=== PATIENT | female | born 1985 | race African-American/Black ===

== ENCOUNTER 2017-04-25 20:41 | Emergency (ER) | payer OTHER ==
[2017-04-25] MEDS ORDERED: predniSONE TAB* 20 MG PO ONE (22:28)
[2017-04-25] MEDS ORDERED: Albuterol 2.5 MG/3 ML NEB.SOL* (0.083%) INH ONE (22:29)
--- NOTE | 2017-04-25 22:29 | UC ---
Respiratory Complaint HPI - HPI Summary HPI Summary: 31 y/o female presents to the urgent care c/o productive cough, wheezing, chills , for the past week. Pt reports Hx of asthma, but has been controlled for many years. Symptoms started w/ a common cold, how ever cough is now productive w/ yellowish phlegm and last night she started w/ mild wheezing at times. She doesn't have an albuterol inhaler. Pt feels fatigue, and chills. She denies fever, SOB, chest pain, abdominal pain, MARINELLI, N/V/D. - History of Current Complaint Chief Complaint: UCRespiratory Stated Complaint: COUGH Time Seen by Provider: 04/25/17 22:08 Hx Obtained From: Patient Hx Last Menstrual Period: implant ?: No Onset/Duration: Gradual Onset, Lasting Weeks - 1 week, Still Present, Worse Since - last night Timing: Intermittent Episodes Severity Initially: Mild Severity Currently: Moderate Pain Intensity: 0 Pain Scale Used: 0-10 Numeric Character: Cough: Productive, Sputum Description: - yellowish Aggravating Factors: Recumbent Position Alleviating Factors: OTC Meds Associated Signs And Symptoms: Positive: Chills, Wheezing, URI, Nasal Congestion. Negative: Fever - Risk Factors Pulmonary Embolism Risk Factors: Negative Cardiac Risk Factors: Negative Pseudomonas Risk Factors: Negative Tuberculosis Risk Factors: Negative - Allergies/Home Medications Allergies/Adverse Reactions: Allergies Allergy/AdvReac Type Severity Reaction Status Date / Time Penicillins Allergy Hives Verified 04/25/17 21:03 Home Medications: Home Medications Iron [Iron] 90 mg PO DAILY 04/25/17 [History Confirmed 04/25/17] Multivitamin [Multivitamins] 1 cap PO DAILY 04/25/17 [History Confirmed 04/25/17 ] PMH/Surg Hx/FS Hx/Imm Hx Previously Healthy: Yes Respiratory History: Asthma - Surgical History Surgical History: Yes Surgery Procedure, Year, and Place: TONSILLECTOMY 2009 - Family History Known Family History: Positive: Diabetes - Social History Occupation: Employed Full-time Lives: With Family Alcohol Use: None Substance Use Type: None Smoking Status (MU): Never Smoked Tobacco - Immunization History Most Recent Influenza Vaccination: declines Most Recent Tetanus Shot: 12/11/14 Most Recent Pneumonia Vaccination: none Review of Systems Constitutional: Chills, Fatigue Skin: Negative Eyes: Negative ENT: Nasal Discharge, Sinus Congestion Respiratory: Cough, Other - wheezing Cardiovascular: Negative Gastrointestinal: Negative Genitourinary: Negative Motor: Negative Neurovascular: Negative Musculoskeletal: Negative Neurological: Negative Psychological: Negative Is Patient Immunocompromised?: No All Other Systems Reviewed And Are Negative: Yes Physical Exam Triage Information Reviewed: Yes Vital Signs: Initial Vital Signs Temp 98.7 F 04/25/17 20:58 Pulse 91 04/25/17 20:58 Resp 16 04/25/17 20:58 BP 119/49 04/25/17 20:58 Pulse Ox 98 04/25/17 20:58 - Additional Comments Vital Signs Reviewed: Yes General: well developed, well nourished female sitting in the examining table w/ o any apparent respiratory distress Eyes: Positive: Conjunctiva Clear - PERRLA, EOMI, fundi grossly normal ENT: Positive: Normal ENT inspection, Hearing grossly normal, Pharynx normal, Nasal congestion - edematous and erythematous nasal mucosa, Nasal drainage - yellowish drainage, TMs normal. Negative: Tonsillar swelling, Tonsillar exudate Neck: Positive: Supple, Nontender, No Lymphadenopathy Respiratory: no orthopnea or dyspnea. Able to speak in full sentences, no retractions or accessory muscle use, no tripod position, stridor, or head bobbing. breath sounds present, mild scattered wheeaing in the posterior lungs w. mild rhonchi. No crackles or rales. Cardiovascular: Positive: RRR, No Murmur, Pulses Normal, Brisk Capillary Refill Abdomen Description: Positive: Nontender, No Organomegaly, Soft. Negative: CVA Tenderness (R), CVA Tenderness (L) Bowel Sounds: Positive: Present Musculoskeletal Exam: Normal Musculoskeletal: Positive: Strength Intact, ROM Intact, No Edema Neurological Exam: Normal Psychological Exam: Normal Skin Exam: Normal UC Diagnostic Evaluation - Laboratory O2 Sat by Pulse Oximetry: 98 Respiratory Course/Dx - Course Course Of Treatment: 31 y/o female presents to the urgent care c/o productive cough, wheezing, chills, for the past week. Pt reports Hx of asthma, but has been controlled for many years. Symptoms started w/ a common cold, how ever cough is now productive w/ yellowish phlegm and last night she started w/ mild wheezing at times. She doesn't have an albuterol inhaler. Pt feels fatigue, and chills. She denies fever, SOB, chest pain, abdominal pain, MARINELLI, N/V/D. Hx obtained. Asthma exacerbation: due to Acute Bronchitis. Influenza A&B ordered: negative. Albuterol Treatment and Perdnisone PO given to patient. Patient tolerated well treatment and lungs improved, mild wheezing only in posterior RT lung, O2 sat 100%. Patient prescribed Z-boyd, Prednisone, Albuterol inhaler as directed below. The patient was recommended to increase fluid intake. Take medications as recommended Patient recommended to return to the clinic or go to the nearest ER if symptoms do not improve or worsen. Patient understood and agreed w/ plan of care - Differential Dx/Diagnosis Differential Diagnosis/HQI/PQRI: Asthma, Bronchitis, Influenza, Laryngitis, Sinusitis Provider Diagnoses: 1- Acute bronchitis. 2-Asthma exacerbation Discharge - Discharge Plan Condition: Stable Disposition: HOME Prescriptions: Albuterol HFA INHALER* [Ventolin HFA Inhaler*] 1 - 2 puff INH Q4H PRN #1 mdi PRN Reason: Wheezing Azithromycin TAB* [Zithromax TAB (Z-BOYD) 250 mg #6 tabs] 250 mg PO DAILY #4 tab predniSONE TAB* [Deltasone TAB*] 20 mg PO DAILY #8 tab Patient Education Materials: Asthma (ED), Acute Bronchitis (ED) Forms: *Work Release Referrals: Tsering Draper MD [Primary Care Provider] - 3 Days Additional Instructions: 1-Please take full course of antibiotic to avoid resistance. 2-Take Prednisone PO as directed continue using the albuterol inhaler 3- If symptoms do not improve or worsen or your develop SOB with fever and severe wheezing please go immediately to the ER further evaluation and treatment. 4- F/u with your PCP in 2-3 days for further management on your Asthma
[2017-04-25] MEDS ORDERED: Azithromycin TAB* 250 MG PO ONE (23:00)
[2017-04-25 23:08] VITALS: BP 116/50
== END 2017-04-25 23:16 | disposition home or self-care (01) ==
LOC: UCEAST 20:41
DX: J20.9 Acute bronchitis, unspecified (principal); J45.901 Unspecified asthma with (acute) exacerbation
CPT/HCPCS: 87502; 99212; G0463; J7512

== ENCOUNTER 2017-09-18 10:28 | Emergency (ER) | payer OTHER ==
[2017-09-18] MEDS ORDERED: Ketorolac INJ* 60 MG/2 ML VIAL IM ONE (11:37)
[2017-09-18] MEDS ORDERED: Clindamycin CAP* 150 MG PO ONE (11:37)
--- NOTE | 2017-09-18 11:47 | ED ---
Throat Pain/Nasal Congestion - HPI Summary HPI Summary: This is horacio Gutierrez documenting for attending Luke Reese MD. This patient is a 31 year old F presenting to ED with a chief complaint of dental pain since 2 days ago. The CC is described as swelling on her R wisdom tooth. The patient rates the pain 10/10 in severity. Symptoms aggravated by opening her mouth. Symptoms alleviated by nothing. Patient reports R jaw pain. The patient has not yet seen a dentist. - History of Current Complaint Chief Complaint: EDDentalPain Time Seen by Provider: 09/18/17 11:24 Hx Obtained From: Patient Onset/Duration: Sudden Onset, Lasting Days - 2 days ago Severity: Severe - 10/10 - Allergies/Home Medications Allergies/Adverse Reactions: Allergies Allergy/AdvReac Type Severity Reaction Status Date / Time Penicillins Allergy Hives Verified 09/18/17 11:34 PMH/Surg Hx/FS Hx/Imm Hx Endocrine/Hematology History: Denies: Hx Diabetes, Hx Thyroid Disease Cardiovascular History: Denies: Hx Hypertension Respiratory History: Denies: Hx Asthma, Hx Chronic Obstructive Pulmonary Disease (COPD) GI History: Denies: Hx Ulcer - Surgical History Surgery Procedure, Year, and Place: TONSILLECTOMY 2009 Infectious Disease History: No Infectious Disease History: Denies: Hx Clostridium Difficile, Hx Hepatitis, Hx Human Immunodeficiency Virus (HIV), Hx of Known/Suspected MRSA, Hx Shingles, Hx Tuberculosis, Traveled Outside the in Last 30 Days - Family History Known Family History: Positive: Diabetes - Social History Alcohol Use: None Substance Use Type: Reports: None Smoking Status (MU): Never Smoked Tobacco Review of Systems Negative: Fever Positive: Dental Pain - R wisdom tooth, Other - R jaw pain All Other Systems Reviewed And Are Negative: Yes Physical Exam - Summary Physical Exam Summary: VITAL SIGNS: Reviewed. GENERAL: Patient is a well-developed and nourished FEMALE who is lying comfortable in the stretcher. Patient is not in any acute respiratory distress. HEAD AND FACE: No signs of trauma. No ecchymosis, hematomas or skull depressions. No sinus tenderness. Swelling of R side of the face. EYES: PERRLA, EOMI x 2, No injected conjunctiva, no nystagmus. EARS: Hearing grossly intact. Ear canals and tympanic membranes are within normal limits. MOUTH: wisdom tooth infection, no tongue or lip swelling, Air ways are patent. NECK: Supple, trachea is midline, no adenopathy, no JVD, no carotid bruit, no c- spine tenderness, neck with full ROM. CHEST: Symmetric, no tenderness at palpation LUNGS: Clear to auscultation bilaterally. No wheezing or crackles. CVS: Regular rate and rhythm, S1 and S2 present, no murmurs or gallops appreciated. ABDOMEN: Soft, non-tender. No signs of distention. No rebound no guarding, and no masses palpated. Bowel sounds are normal. EXTREMITIES: FROM in all major joints, no edema, no cyanosis or clubbing. NEURO: Alert and oriented x 3. No acute neurological deficits. Speech is normal and follows commands. SKIN: Dry and warm Triage Information Reviewed: Yes Vital Signs On Initial Exam: Initial Vitals Temp Pulse Resp BP Pulse Ox 98.6 F 82 16 137/75 100 09/18/17 10:29 09/18/17 10:29 09/18/17 10:29 09/18/17 10:29 09/18/17 10:29 Vital Signs Reviewed: Yes Diagnostics - Vital Signs Vital Signs Temp Pulse Resp BP Pulse Ox 09/18/17 10:29 98.6 F 82 16 137/75 100 - Laboratory Lab Statement: Any lab studies that have been ordered have been reviewed, and results considered in the medical decision making process. EENT Course/Dx - Course Course Of Treatment: Patient is a 31-year-old female who presents to the emergency room with dental pain. She reports that she has a dental infection for the last 2 days and she has some swelling of the right side of the face. Therefore the patient will be given a prescription for clindamycin since she is allergic to penicillins, given ibuprofen and [place] for the pain. In the ED she was also given 1 dose of Toradol and clindamycin. Since the patient does have any trismus, tongue swelling or lip swelling the patient will be discharged home with follow-up with PCP and dentist. Patient is hemodynamically stable alert and oriented 3. - Differential Diagnoses Differential Diagnoses: Other - dental pain, toothache - Diagnoses Provider Diagnoses: Toothache Discharge - Sign-Out/Discharge Documenting (check all that apply): Patient Departure - Discharge Plan Condition: Stable Disposition: HOME Prescriptions: Clindamycin Cap(NF) [Clindamycin Cap 300 mg Cap(NF)] 300 mg PO TID #30 cap HYDROcodone/ACETAMIN 5-325 MG* [[place] 5-325 TAB*] 1 tab PO Q6H PRN #10 tab MDD 4 PRN Reason: Pain Ibuprofen TAB* [Motrin TAB* 600 MG] 600 mg PO Q8H PRN #30 tab PRN Reason: Pain Patient Education Materials: Toothache (ED) Referrals: Tsering Draper MD [Primary Care Provider] - 3 Days Additional Instructions: RETURN TO ED FOR ANY WORSENING OR NEW SYMPTOMS.
[2017-09-18 12:10] VITALS: BP 118/62
== END 2017-09-18 11:59 | disposition home or self-care (01) ==
LOC: ED 10:28
DX: K08.89 Other specified disorders of teeth and supporting structures (principal); Z88.0 Allergy status to penicillin
CPT/HCPCS: 96372; 99282; A9270-GY; J1885

== ENCOUNTER 2017-10-23 08:06 | Emergency (ER) | payer OTHER ==
--- NOTE | 2017-10-23 08:13 | UC ---
Ear Complaint HPI - HPI Summary HPI Summary: 32 y/o female presents to the urgent care c/o B/L ear pain for the past 2 days. R>L w/ decrease hearing n the Rt ear. Pain is 8/10 associates w/ nasal congestion and yellowish drainage. She has taking Ibuprofen PO to alleviate symptoms. Pt denies fever, dizziness, SOB, chest pain, cough, abdominal pain, N /v/D. - History of Current Complaint Stated Complaint: EAR PAIN Time Seen by Provider: 10/23/17 08:12 Hx Obtained From: Patient Hx Last Menstrual Period: implant ?: No Onset/Duration: Gradual Onset, Lasting Days - 2 days, Still Present, Worse Since - today Severity Initially: Mild Severity Currently: Moderate Pain Intensity: 8 Pain Scale Used: 0-10 Numeric Aggravating Factors: Nothing Alleviating Factors: OTC Meds Associated Signs/Symptoms: Positive: Hearing Loss - Allergies/Home Medications Allergies/Adverse Reactions: Allergies Allergy/AdvReac Type Severity Reaction Status Date / Time Penicillins Allergy Hives Verified 10/23/17 08:16 Home Medications: Home Medications diphenhydrAMINE HCl [Benadryl Allergy] 25 mg PO DAILY PRN 10/23/17 [History Confirmed 10/23/17] PMH/Surg Hx/FS Hx/Imm Hx Previously Healthy: Yes Respiratory History: Asthma - Surgical History Surgical History: Yes Surgery Procedure, Year, and Place: TONSILLECTOMY 2008 - Family History Known Family History: Positive: Cardiac Disease, Diabetes - Social History Occupation: Employed Full-time Lives: With Family Alcohol Use: None Substance Use Type: None Smoking Status (MU): Never Smoked Tobacco - Immunization History Most Recent Influenza Vaccination: declines Most Recent Tetanus Shot: 12/11/14 Most Recent Pneumonia Vaccination: none Review of Systems Constitutional: Negative Skin: Negative Eyes: Negative ENT: Ear Ache - B/L ear pain w/ decrease hearing, Nasal Discharge - yellowish, Sinus Congestion Respiratory: Negative Cardiovascular: Negative Gastrointestinal: Negative Genitourinary: Negative Motor: Negative Neurovascular: Negative Musculoskeletal: Negative Neurological: Negative Psychological: Negative Is Patient Immunocompromised?: No All Other Systems Reviewed And Are Negative: Yes Physical Exam - Summary Physical Exam Summary: Vital signs: reviewed General: well developed, well nourished female sitting in the examining table w/ o any apparent distress Skin: [place], warm and dry, no evidence of atopic dermatitis, psoriasis, seborrhea. HEENT: -Head: atraumatic, non tender; no scalp dermatitis. -Eyes: sclera and conjunctiva clear, PERRLA, EOMI -Ears: no pre- or postauricular lymphadenopathy or erythema; RT external ear canal clear, Rt TM moderately injected w/ erythema and yellowish drainage., LF external ear canal clear and LF TM WNL. TMs normal w/out bulging or retraction. Good light reflex. No fluid level, vesicles, or bullae. No perforation. -Nose/Face: erythematous and edematous nasal mucosa with clear rhinorrhea, no frontal or maxillary sinus tender to palpation. -Mouth/Throat: Mucous membrane moist, posterior pharynx clear, no erythema or exudates. Neck: supple, FROM, nontender, no lymphadenopathy, no meningismus. Chest: Clear to auscultation, normal breath sounds Abd: soft, Bowel sounds active, Nontender. Back: no spinal or CVAT Neuro: A&O x4, GCS 15, no focal neuro deficits, normal behavior for age. Triage Information Reviewed: Yes Ear Complaint Course/Dx - Course Course Of Treatment: 32 y/o female presents to the urgent care c/o B/L ear pain for the past 2 days. R>L w/ decrease hearing n the Rt ear. Pain is 8/10 associates w/ nasal congestion and yellowish drainage. She has taking Ibuprofen PO to alleviate symptoms. Pt denies fever, dizziness, SOB, chest pain, cough, abdominal pain, N/v/D.Hx obtained. Pt w/ acute Otitis Media on examination. Pt PCN allergic. Pt Rx Z-boyd PO and Ibuprofen for otaliga. PT advised if symptoms do not improve or worsen to return to the urgent care or f/u with PCP for further management. PT understood and agreed with D/C instructions. - Differential Dx/Diagnosis Differential Diagnosis/HQI/PQRI: Cerumen Impaction, Otitis Externa, Otitis Media , Perforated TM, URI Provider Diagnoses: 1- RT acute otitis Media. 2- Otalgia Discharge - Sign-Out/Discharge Documenting (check all that apply): Patient Departure - D/c home All imaging exams completed and their final reports reviewed: No Studies - Discharge Plan Condition: Stable Disposition: HOME Prescriptions: Azithromyxin BOYD (NF) [Z-Boyd (Zithromax) 250 mg tabs #6] 2 tab PO .TODAY, THEN 1 DAILY #6 tab Ibuprofen TAB* [Motrin TAB* 600 MG] 600 mg PO Q6H PRN #30 tab PRN Reason: Pain Patient Education Materials: Ear Infection (ED) Referrals: Tsering Draper MD [Primary Care Provider] - 3 Days Additional Instructions: 1- Please take the full course of the antibiotic to avoid resistance. 2-Please take ibuprofen PO q6-8hrs prn as instructed after meals to alleviate pain and swelling. Increase fluid intake, eat well, rest and avoid strenuous exercise 3-If symptoms do not improve or worsen please return to the urgent care or f/u with your PCP for further evaluation and treatment. - Billing Disposition and Condition Condition: STABLE Disposition: Home
[2017-10-23 08:16] VITALS: BP 107/65
== END 2017-10-23 08:33 | disposition home or self-care (01) ==
LOC: UCEAST 08:06
DX: H66.91 Otitis media, unspecified, right ear (principal); Z88.0 Allergy status to penicillin; H92.03 Otalgia, bilateral
CPT/HCPCS: 99212; G0463

== ENCOUNTER 2017-11-26 13:02 | Emergency (ER) | payer OTHER ==
[2017-11-26 13:13] VITALS: BP 126/83
--- NOTE | 2017-11-26 13:28 | UC ---
Breast Complaint - HPI Summary HPI Summary: right breast and arm pain x 3 months. [facility] and was told to see her PCP for a possible pinched nerve. She has an appointment scheduled with her PCP for this , but the pain is now in her right ribs and she wants to be seen since the pain is very intense. She has norplanon on her left arm which coincided with the onset of pain. Denies SOB, dizziness, MARINELLI, palpitations. Pain is not related to physical activity. She states pain is like labor pains. Denies breast enlargement, nipple discharge, manipulation - History of Current Complaint Hx Obtained From: Patient Breast Chief Complaint: Pain Onset/Duration: Started Weeks Ago Timing: Constant Breast Pain Radiates To: Right, Axilla, Back, Neck, Other: - ribcage, arm and hand Breast Pain Aggravating Factors: Nothing Breast Pain Alleviating Factors: Nothing Breast Associated Signs/Symptoms: Negative - Allergy/Home Medications Allergies/Adverse Reactions: Allergies Allergy/AdvReac Type Severity Reaction Status Date / Time Penicillins Allergy Hives Verified 11/26/17 13:06 Home Medications: Home Medications Aspirin TAB* [Aspirin 325 MG TAB*] 325 mg PO DAILY PRN 11/26/17 [History Confirmed 11/26/17] Etonogestrel [Nexplanon] 68 mg 11/26/17 [History] PMH/Surg Hx/FS Hx/Imm Hx Previously Healthy: Yes Respiratory History: Asthma - Surgical History Surgical History: Yes Surgery Procedure, Year, and Place: TONSILLECTOMY 2008 - Family History Known Family History: Positive: Cardiac Disease, Diabetes - Social History Alcohol Use: Occasionally Substance Use Type: None Smoking Status (MU): Light Every Day Tobacco Smoker Type: Cigarettes - Immunization History Most Recent Influenza Vaccination: declines Most Recent Tetanus Shot: 12/11/14 Most Recent Pneumonia Vaccination: none Review of Systems Constitutional: Negative Musculoskeletal: Arthralgia, Myalgia All Other Systems Reviewed And Are Negative: Yes Physical Exam - Summary Physical Exam Summary: cervical spine is midline, non tender, FROM, spurling negative. Right shoulder Muñoz negative, no impingement, supraspinatus negative, FROM and strength intact Arm: non tender on elbow palpation Hand: phalen/tinel negative, no distal swelling Ribs: no deformity non tender on palpation Triage Information Reviewed: Yes Appearance: Well-Appearing, Pain Distress, Obese Vital Signs: Initial Vital Signs Temp 98.6 F 11/26/17 13:08 Pulse 100 11/26/17 13:08 Resp 20 11/26/17 13:08 BP 126/83 11/26/17 13:08 Pulse Ox 99 11/26/17 13:08 Vital Signs Reviewed: Yes Eyes: Positive: Conjunctiva Clear ENT: Positive: Hearing grossly normal, Pharynx normal Neck: Positive: Supple, Nontender, No Lymphadenopathy Respiratory: Positive: Chest non-tender, Lungs clear, Normal breath sounds, No respiratory distress Cardiovascular: Positive: RRR, No Murmur, Pulses Normal Abdomen Description: Positive: Nontender, No Organomegaly, Soft Bowel Sounds: Positive: Present Musculoskeletal: Positive: Strength Intact, ROM Intact, No Edema Neurological: Positive: Alert, Muscle Tone Normal Breast Pain Course/Dx - Course Course Of Treatment: chest xray was normal, no presence of cervical rib, patient with right UE and right shoulder/neck ribcage pain that coincided with nexplanon insertion for the past few months, patient wants it extracted [facility]. Given toradol to control pain, states it decreased pain significantly and will start gabapentin and ibuprofen as prescribed. F/u with primary care for further testing as to the etiology of pain, may need EMG/nerve conduction studies. - Diagnoses Provider Diagnoses: Paresthesia and pain of extremity Is Visit Related: No Discharge - Sign-Out/Discharge Documenting (check all that apply): Patient Departure All imaging exams completed and their final reports reviewed: Yes - Discharge Plan Condition: Stable Disposition: HOME Prescriptions: Gabapentin CAP(*) [Neurontin 300 CAP(*)] 300 mg PO BEDTIME #14 cap Ibuprofen TAB* [Motrin TAB* 600 MG] 600 mg PO Q6H PRN 5 Days #20 tab PRN Reason: Pain Referrals: Tsering Draper MD [Primary Care Provider] - - Billing Disposition and Condition Condition: STABLE Disposition: Home
[2017-11-26] MEDS ORDERED: Ketorolac INJ* 30 MG/ML 1 ML VIAL IM ONE (13:44)
--- NOTE | 2017-11-26 14:24 | RAD ---
HISTORY: paresthesia right UE and trunk r/o cervical rib COMPARISONS: November 05, 2013 VIEWS: 4: Frontal dual-energy and lateral views of the chest. FINDINGS: CARDIOMEDIASTINAL SILHOUETTE: The cardiomediastinal silhouette is normal. FERNANDO: The fernando are normal. PLEURA: The costophrenic angles are sharp. No pleural abnormalities are noted. LUNG PARENCHYMA: The lungs are clear. ABDOMEN: The upper abdomen is clear. There is no subphrenic gas. BONES AND SOFT TISSUES: No bone or soft tissue abnormalities are noted. OTHER: None. IMPRESSION: NO ACTIVE CARDIOPULMONARY DISEASE.
== END 2017-11-26 14:38 | disposition home or self-care (01) ==
LOC: UCEAST 13:02
DX: R20.2 Paresthesia of skin (principal); R07.81 Pleurodynia; N64.4 Mastodynia; M79.621 Pain in right upper arm; M54.2 Cervicalgia; Z88.0 Allergy status to penicillin; F17.210 Nicotine dependence, cigarettes, uncomplicated
CPT/HCPCS: 71046; 96372; 99212; G0463; J1885

== ENCOUNTER 2018-01-31 12:32 | Emergency (ER) | payer OTHER ==
[2018-01-31] MEDS ORDERED: Clindamycin 600 MG IVPREMIX(* 600 MG/50 ML SDV IV ONE (12:46)
--- NOTE | 2018-01-31 12:47 | ED ---
Throat Pain/Nasal Congestion - HPI Summary HPI Summary: 32 year old female presents with a dental abscess. Needs wisdom teeth extraction per Dentist. Patient states the pain and swelling began Monday and has been progressively getting worse. She states she now is unable to fully open her mouth. She called her dentist who recommended she be seen in the ED. States the pain is localized to the right jaw with no radiation. Rates the pain as a 10/10. She took 600mg of ibuprofen at 1000 with little relief. Patient has had a dental abscess in the past. Patient denies CP, SOB, neck pain, difficulty swallowing, ear pain, headache, and neck stiffness. Endorses difficulty chewing , jaw pain, and swelling. Patient is otherwise healthy and takes no medications on a daily basis. - History of Current Complaint Chief Complaint: EDDentalPain Time Seen by Provider: 01/31/18 12:40 Hx Obtained From: Patient Onset/Duration: Sudden Onset, Lasting Days Severity: Severe Associated Signs And Symptoms: Positive: Negative Related History: Other (Noted In Comments) - recent wisdom teeth extraction, hx of dental abscess - Epiglottits Risk Factors Epiglottis Risk Factors: Negative - Allergies/Home Medications Allergies/Adverse Reactions: Allergies Allergy/AdvReac Type Severity Reaction Status Date / Time Penicillins Allergy Hives Verified 01/31/18 12:39 PMH/Surg Hx/FS Hx/Imm Hx Previously Healthy: Yes Endocrine/Hematology History: Denies: Hx Diabetes, Hx Thyroid Disease Cardiovascular History: Denies: Hx Hypertension Respiratory History: Reports: Hx Asthma Denies: Hx Chronic Obstructive Pulmonary Disease (COPD) GI History: Denies: Hx Ulcer - Surgical History Surgery Procedure, Year, and Place: TONSILLECTOMY 2009 Infectious Disease History: No Infectious Disease History: Denies: Hx Clostridium Difficile, Hx Hepatitis, Hx Human Immunodeficiency Virus (HIV), Hx of Known/Suspected MRSA, Hx Shingles, Hx Tuberculosis, Traveled Outside the [place] in Last 30 Days - Family History Known Family History: Positive: Cardiac Disease, Diabetes - Social History Alcohol Use: Occasionally Substance Use Type: Reports: None Smoking Status (MU): Light Every Day Tobacco Smoker Type: Cigarettes Review of Systems Negative: Fever, Fatigue Negative: Blurred Vision, Drainage Positive: Dental Pain. Negative: Sore Throat, Ear Ache, Nasal Discharge Negative: Chest Pain Negative: Shortness Of Breath Negative: Vomiting, Nausea Negative: Headache, Weakness Psychological: Normal All Other Systems Reviewed And Are Negative: Yes Physical Exam Triage Information Reviewed: Yes Vital Signs On Initial Exam: Initial Vitals Temp Pulse Resp BP Pulse Ox 98.1 F 82 18 124/81 100 01/31/18 12:36 01/31/18 12:36 01/31/18 12:36 01/31/18 12:36 01/31/18 12:36 Vital Signs Reviewed: Yes Appearance: Positive: Well-Appearing, Well-Nourished, Pain Distress Skin: Positive: Warm Head/Face: Positive: Other - Edema of the right jaw. Tenderness to palpation of the right jaw and cheek. Eyes: Positive: EOMI, JURGEN, Conjunctiva Clear ENT: Positive: Pharynx normal, TMs normal, Dental tenderness Dental: Positive: Percussion Tenderness @ - 1. Negative: Abscess @ Neck: Positive: Supple, Nontender, No Lymphadenopathy Respiratory/Lung Sounds: Positive: Clear to Auscultation, Breath Sounds Present Cardiovascular: Positive: Normal, RRR Abdomen Description: Positive: Nontender, Soft Bowel Sounds: Positive: Present Musculoskeletal: Positive: Normal Neurological: Positive: Normal Psychiatric: Positive: Normal Diagnostics - Vital Signs Vital Signs Temp Pulse Resp BP Pulse Ox 01/31/18 12:36 98.1 F 82 18 124/81 100 - Laboratory Lab Statement: Any lab studies that have been ordered have been reviewed, and results considered in the medical decision making process. Re-Evaluation - Re-Evaluation First Eval Re-Evaluation Time: 13:56 Change: Improved Comment: feeling better after fluids EENT Course/Dx - Course Course Of Treatment: 32 year old female presents with dental pain and possible abscess since Monday. Patient has a history of dental abscess and was referred to ED by dentist. Patient denies radiation, ear pain, difficulty swallowing, CP , and SOB. Physical exam reveals a swollen right jaw and tenderness to the 1st tooth. No abscess noted. Patient was given Toradol for pain and started on IV Clindamycin. Patient prescribed outpatient Clindamycin for infection and [place] to use PRN for pain. Patient instructed to follow up promptly with dentist. patient understand and agrees with plan. - Differential Diagnoses Differential Diagnoses: Dental Abscess, Dental Caries, Fractured Tooth - Diagnoses Provider Diagnoses: Dental infection Discharge - Sign-Out/Discharge Documenting (check all that apply): Patient Departure - Discharge Plan Condition: Good Disposition: HOME Prescriptions: Clindamycin Cap(NF) [Clindamycin Cap 300 mg Cap(NF)] 300 mg PO TID #20 cap HYDROcodone/ACETAMIN 5-325 MG* [[place] 5-325 TAB*] 1 tab PO Q6H PRN #8 tab MDD 4 PRN Reason: Pain Patient Education Materials: Dental Abscess (ED) Referrals: Tsering Draper MD [Medical Doctor] - Additional Instructions: Take clindamycin three times a day for 7 days Take ibuprofen every 6 hours for pain as needed, use norco every 6 hours for break through pain Avoid hard, crunchy food until seen by dentist Return to ED if develop fever, shortness of breath, pain with eye movement or swelling around eye Establish care with dentist as soon as possible - Billing Disposition and Condition Condition: GOOD Disposition: Home Images - Images Dental: 1 - pain
[2018-01-31] MEDS ORDERED: Ketorolac INJ* 30 MG/ML 1 ML VIAL IV PUSH ONE (12:57)
[2018-01-31] MEDS ORDERED: NS 0.9% 1000 ML* 1,000 ML IV ONE (12:57)
[2018-01-31 14:03] VITALS: BP 130/81
== END 2018-01-31 14:02 | disposition home or self-care (01) ==
LOC: ED 12:32
DX: K04.7 Periapical abscess without sinus (principal); F17.210 Nicotine dependence, cigarettes, uncomplicated; J45.909 Unspecified asthma, uncomplicated
CPT/HCPCS: 96361; 96374; 96375; 99282; J1885

== ENCOUNTER 2018-03-03 08:19 | Emergency (ER) | payer OTHER ==
[2018-03-03 08:32] VITALS: BP 116/69
--- NOTE | 2018-03-03 09:12 | UC ---
Complaint Female HPI - HPI Summary HPI Summary: 5 days of dysuria only. Uses nexplanon. denies n/v, vaginal discharge, vaginal rash/open areas. - History Of Current Complaint Chief Complaint: UCGU Stated Complaint: URINARY ISSUE Time Seen by Provider: 03/03/18 08:25 Hx Obtained From: Patient Hx Last Menstrual Period: November; has implant ?: No - nexplanon Timing: Constant Pain Intensity: 0 - Allergies/Home Medications Allergies/Adverse Reactions: Allergies Allergy/AdvReac Type Severity Reaction Status Date / Time Penicillins Allergy Hives Verified 03/03/18 08:29 Home Medications: Home Medications Multivitamin [Multivitamins] 1 cap PO DAILY 03/03/18 [History Confirmed 03/03/18 ] PMH/Surg Hx/FS Hx/Imm Hx Previously Healthy: Yes - Surgical History Surgical History: Yes Surgery Procedure, Year, and Place: TONSILLECTOMY 2008 - Family History Known Family History: Positive: Cardiac Disease, Diabetes - Social History Alcohol Use: None Substance Use Type: None Smoking Status (MU): Former Smoker Type: Cigarettes - Immunization History Most Recent Influenza Vaccination: declines Most Recent Tetanus Shot: 12/11/14 Most Recent Pneumonia Vaccination: none Review of Systems All Other Systems Reviewed And Are Negative: Yes Constitutional: Negative: Fever Genitourinary: Positive: Dysuria. Negative: Hematuria, Frequency, Urgency, Vaginal/Penile Discharge Physical Exam Triage Information Reviewed: Yes Appearance: Well-Appearing Vital Signs: Initial Vital Signs Temp 98.2 F 03/03/18 08:25 Pulse 85 03/03/18 08:25 Resp 14 03/03/18 08:25 BP 116/69 03/03/18 08:25 Pulse Ox 100 03/03/18 08:25 Vital Signs Reviewed: Yes Respiratory Exam: Normal Cardiovascular Exam: Normal Abdomen Description: Positive: Nontender, Soft. Negative: CVA Tenderness (R), CVA Tenderness (L), Distended, Guarding Pelvic Exam: Positive: Other - DECLINED Complaint Female Dx - Course Course Of Treatment: 5 day hx of dysuria only. Neg. urine hcg. UA showed blood only. Will tx empirically for now, send for urine cx. chlam/ced also sent. If not improving she should get worked up. she declined gu exam. otherwise vitals normal and no cvat. - Differential Dx/Diagnosis Differential Diagnosis/HQI/PQRI: Sexually Transmitted Disease, Urinary Tract Infection Provider Diagnosis: Dysuria Discharge - Sign-Out/Discharge Documenting (check all that apply): Patient Departure All imaging exams completed and their final reports reviewed: No Studies - Discharge Plan Condition: Good Disposition: HOME Prescriptions: Nitrofurantoin Macrocrystals* [Macrodantin 100 mg*] 100 mg PO BID 5 Days #10 cap Patient Education Materials: Urinary Tract Infection in Women (ED) Referrals: Charmaine Velasco NP [Primary Care Provider] - Additional Instructions: Your urine did not show an obvious infection but there was microscopic blood. For this reason I will treat it with an antibiotic and am sending it to get cultured. We will call you with the other tests if abnormal. If your symptoms persist after treatment please follow up with your primary care. - Billing Disposition and Condition Condition: GOOD Disposition: Home
== END 2018-03-03 09:25 | disposition home or self-care (01) ==
LOC: UCEAST 08:19
DX: R30.0 Dysuria (principal); Z88.0 Allergy status to penicillin; Z87.891 Personal history of nicotine dependence
CPT/HCPCS: 81003; 84702; 87086; 87491; 87591; 99212; G0463

== ENCOUNTER 2018-04-05 18:36 | Emergency (ER) | payer OTHER ==
[2018-04-05 19:04] VITALS: BP 122/65
[2018-04-05 19:16] LABS: Influenza A Molecular NEGATIVE (Negative); Influenza B Molecular NEGATIVE (Negative)
--- NOTE | 2018-04-05 19:26 | UC ---
FLU HPI - HPI Summary HPI Summary: 32-year-old woman comes in with a chief complaint of several days of bodyaches fevers chills nausea. No vomiting no chest congestion no shortness of breath. Uars-noy-[id number] medications up with the symptoms some. Her son is also sick with the same symptoms. - History of Current Complaint Chief Complaint: UCRespiratory Stated Complaint: FLU LIKE SYMP Time Seen by Provider: 04/05/18 18:51 Hx Last Menstrual Period: implant Pain Intensity: 8 - Allergy/Home Medications Allergies/Adverse Reactions: Allergies Allergy/AdvReac Type Severity Reaction Status Date / Time Penicillins Allergy Hives Verified 03/03/18 08:29 Home Medications: Home Medications D-Methorphan/PE/Acetaminophen [Theraflu Expressmax Day Caplet] 1 tab PO DAILY PRN 04/05/18 [History Confirmed 04/05/18] PMH/Surg Hx/FS Hx/Imm Hx Previously Healthy: Yes - Surgical History Surgical History: Yes Surgery Procedure, Year, and Place: TONSILLECTOMY 2008 - Family History Known Family History: Positive: Cardiac Disease, Diabetes - Social History Alcohol Use: None Substance Use Type: None Smoking Status (MU): Former Smoker Type: Cigarettes - Immunization History Most Recent Influenza Vaccination: declines Most Recent Tetanus Shot: 12/11/14 Most Recent Pneumonia Vaccination: none Review of Systems All Other Systems Reviewed And Are Negative: Yes Constitutional: Positive: Fever, Chills Skin: Positive: Negative Eyes: Positive: Negative ENT: Positive: Sore Throat, Nasal Discharge, Sinus Congestion Respiratory: Positive: Negative Cardiovascular: Positive: Negative Gastrointestinal: Positive: Negative Motor: Positive: Negative Neurovascular: Positive: Negative Musculoskeletal: Positive: Myalgia Neurological: Positive: Negative Psychological: Positive: Negative Is Patient Immunocompromised?: No Physical Exam Triage Information Reviewed: Yes Appearance: No Pain Distress, Well-Nourished, Ill-Appearing - MILD Vital Signs: Initial Vital Signs Temp 98.7 F 04/05/18 19:00 Pulse 90 04/05/18 19:00 Resp 16 04/05/18 19:00 BP 122/65 04/05/18 19:00 Pulse Ox 98 04/05/18 19:00 Vital Signs Reviewed: Yes Eye Exam: Normal Eyes: Positive: Conjunctiva Clear ENT: Positive: Pharyngeal erythema, Nasal congestion, Nasal drainage, TMs normal Neck exam: Normal Neck: Positive: Supple Respiratory: Positive: Lungs clear, Normal breath sounds, No respiratory distress Cardiovascular: Positive: RRR Musculoskeletal Exam: Normal Musculoskeletal: Positive: Strength Intact, ROM Intact Neurological Exam: Normal Neurological: Positive: Alert, Muscle Tone Normal Psychological Exam: Normal Psychological: Positive: Normal Response To Family, Age Appropriate Behavior Skin Exam: Normal Flu Course/Dx - Course Course Of Treatment: The patient's 3-year-old son with the same symptoms is positive for influenza. We discussed treatment with Tamiflu and the patient prefers to be treated with Tamiflu. Symptomatically treatment otherwise. - Differential Dx/Diagnosis Provider Diagnosis: Influenza-like illness Discharge - Sign-Out/Discharge Documenting (check all that apply): Patient Departure All imaging exams completed and their final reports reviewed: No Studies - Discharge Plan Condition: Stable Disposition: HOME Prescriptions: Oseltamivir CAP* [Tamiflu CAP*] 75 mg PO BID #10 cap Patient Education Materials: Influenza (ED) Referrals: Charmaine Velasco, [employer] [Primary Care Provider] - Additional Instructions: FOLLOW UP WITH YOUR DOCTOR IF NOT COMPLETELY IMPROVED. GET RECHECKED FOR ANY WORSENING OF YOUR CONDITION OR QUESTIONS OR CONCERNS. - Billing Disposition and Condition Condition: STABLE Disposition: Home
== END 2018-04-05 19:59 | disposition home or self-care (01) ==
LOC: UCEAST 18:36
DX: J11.1 Influenza due to unidentified influenza virus with other respiratory manifestations (principal); R11.0 Nausea; Z87.891 Personal history of nicotine dependence; Z88.0 Allergy status to penicillin
CPT/HCPCS: 99212; G0463

== ENCOUNTER 2018-07-01 21:12 | Emergency (ER) | payer OTHER ==
[2018-07-01 21:26] VITALS: BP 137/72
[2018-07-01] MEDS ORDERED: Naproxen TAB* 250 MG PO ONE (21:56)
--- NOTE | 2018-07-01 22:00 | UC ---
Cardiac HPI - HPI Summary HPI Summary: Patient is a 32 year old woman, who present today to the urgent care with chest pain for past 7 days. she reports localized right-sided chest pain. Does not get worse or better. She has tried taking some aspirin about much relief Denies any fever, chills, cough chest pain or shortness of breath . Denies any abdominal pain , nausea or vomiting , diarrhea or constipation. - History of Current Complaint Chief Complaint: UCChestPain Stated Complaint: CHEST PAIN Time Seen by Provider: 07/01/18 21:18 Hx Obtained From: Patient Hx Last Menstrual Period: inplanon Pain Intensity: 8 - Allergy/Home Medications Allergies/Adverse Reactions: Allergies Allergy/AdvReac Type Severity Reaction Status Date / Time Penicillins Allergy Hives Verified 03/03/18 08:29 PMH/Surg Hx/FS Hx/Imm Hx - Additional Past Medical History Additional PMH: anemia Asthma Family history: Maternal: CA/coronary artery disease, breast cancer, diabetes mellitus, hypertension and hyperlipidemia Paternal: CA/coronary artery disease Previously Healthy: Yes - Surgical History Surgical History: Yes Surgery Procedure, Year, and Place: TONSILLECTOMY 2009, wisdom teeth extraction - Family History Known Family History: Positive: Cardiac Disease, Diabetes - Social History Alcohol Use: Rare Substance Use Type: None Smoking Status (MU): Former Smoker Type: Cigarettes - Immunization History Most Recent Influenza Vaccination: declines Most Recent Tetanus Shot: 12/11/14 Most Recent Pneumonia Vaccination: none Review of Systems All Other Systems Reviewed And Are Negative: Yes Constitutional: Positive: Negative Skin: Positive: Negative Eyes: Positive: Negative ENT: Positive: Negative Respiratory: Positive: Negative. Negative: Shortness Of Breath, Cough Cardiovascular: Positive: Chest Pain - anterior rib cage Gastrointestinal: Positive: Negative Genitourinary: Positive: Negative Motor: Positive: Negative Neurovascular: Positive: Negative Musculoskeletal: Positive: Negative Neurological: Positive: Negative Psychological: Positive: Negative Is Patient Immunocompromised?: No Physical Exam - Summary Physical Exam Summary: Physical Exam: Const: Appears well. No signs of apparent distress present. Alert and oriented x 3. Musculo: Walks with a normal gait.resisted testing of the pectoral muscles without any reproduction of pain Head/Face: Atraumatic, normocephalic on inspection. Eyes: EOMI and PERRLA in both eyes. Conjunctivae clear. No discharge noted ENT: Hearing normal, TM normal appearing bilaterally, non bulging , non erythematous . No tenderness on palpation / manipulation of Tragus. No mastoid tenderness. No tenderness to palpation on maxillary and frontal sinus. No pharyngeal erythema or exudates . Uvula is midline. No cervical or submandibular lymphadenopathy noted. Respiratory: Respirations are unlabored. Lungs clear to auscultation bilaterally, no wheezing , rhonchi or rales noted . CVS: Regular rate and Rhythm, S1S2 normal , no murmurs identified. there is tenderness to palpation at the costochondral junctions on the right side Extremities: Peripheral circulation is grossly normal. Pulses 2+ Abdomen : Soft non tender , nondistended , Bowel sounds present . No guarding , rebound tenderness or rigidity noted. Skin: No lesions or rash located on the upper extremities or on the lower extremities. Neuro: Cranial nerves II to XII intact, motor and sensory intact. DTR Intact bilaterally. Mood is normal. Affect is normal. Triage Information Reviewed: Yes Vital Signs: Initial Vital Signs Temp 98.9 F 07/01/18 21:21 Pulse 88 07/01/18 21:21 Resp 18 07/01/18 21:21 BP 137/72 07/01/18 21:21 Pulse Ox 98 07/01/18 21:21 Vital Signs Reviewed: Yes Diagnostics - EKG Cardiac Rate: NL Cardiac Rhythm: Sinus: Normal Ectopy: None ST Segment: Normal Summary of EKG Findings: normal sinus rhythm , 80 bpm, no ST segment elevation, T wave inversions noted in V1,normal AR and normal QRS interval. Normal R-wave progression - Assessment/Plan Course Of Treatment: During the visit today, we obtained twelve-lead EKG which was normal. Her symptoms appear consistent with costochondritis. We discussed the findings and further plan to treat it with NSAIDs..She was given 1 dose of naproxen here and I will prescribe the medication to the pharmacy . she will follow with the primary care physician in one week. Patient expressed understanding . - Clinical Impression Provider Diagnosis: Costochondritis, acute Discharge - Sign-Out/Discharge Documenting (check all that apply): Patient Departure All imaging exams completed and their final reports reviewed: No Studies - Discharge Plan Condition: Stable Disposition: HOME Prescriptions: Naproxen [Naproxen 500 mg tab] 500 mg PO BID 10 Days #20 tab Patient Education Materials: Costochondritis (ED) Referrals: Charmaine Velasco NP [Primary Care Provider] - 1 Week Additional Instructions: Please start taking the medication as prescribed to the pharmacy . Follow up with your primary care doctor in 1 week Patients blood pressure slightly high(prehypertensive range) in Urgent care today , plan follow up with PCP for better control Return to Urgent care / ER if symptoms get worse. - Billing Disposition and Condition Condition: STABLE Disposition: Home
== END 2018-07-01 22:10 | disposition home or self-care (01) ==
LOC: UCEAST 21:12
DX: M94.0 Chondrocostal junction syndrome [Tietze] (principal); D64.9 Anemia, unspecified; J45.909 Unspecified asthma, uncomplicated; Z88.0 Allergy status to penicillin; Z87.891 Personal history of nicotine dependence
CPT/HCPCS: 99212; A9270-GY; G0463

== ENCOUNTER 2019-01-13 09:05 | Emergency (ER) | payer OTHER ==
[2019-01-13 09:27] VITALS: BP 123/74
--- NOTE | 2019-01-13 09:32 | UC ---
Skin Complaint HPI - HPI Summary HPI Summary: Pt c/o "boil" on buttock. Pt states sx started Thursday 01/11. - History of Current Complaint Chief Complaint: UCSkin Time Seen by Provider: 01/13/19 09:28 Stated Complaint: SKIN COMPLAINT Hx Obtained From: Patient Hx Last Menstrual Period: no period ?: No Onset/Duration: Sudden Onset, Lasting Days Skin Exposure Onset/Duration: Days Ago Timing: Constant Onset Severity: Moderate Current Severity: Severe Pain Intensity: 8 Character: Swelling, Redness, Painful Aggravating Factor(s): Touch - Allergy/Home Medications Allergies/Adverse Reactions: Allergies Allergy/AdvReac Type Severity Reaction Status Date / Time Penicillins Allergy Hives Verified 01/13/19 09:22 PMH/Surg Hx/FS Hx/Imm Hx Previously Healthy: Yes - Surgical History Surgical History: Yes Surgery Procedure, Year, and Place: TONSILLECTOMY 2009, wisdom teeth extraction - Family History Known Family History: Positive: Cardiac Disease, Diabetes - Social History Alcohol Use: None Substance Use Type: None Smoking Status (MU): Current Some Day Smoker Type: Cigarettes - Immunization History Most Recent Influenza Vaccination: declines Most Recent Tetanus Shot: 12/11/14 Most Recent Pneumonia Vaccination: none Review of Systems All Other Systems Reviewed And Are Negative: Yes Skin: Positive: Other - abscess Is Patient Immunocompromised?: No Physical Exam Triage Information Reviewed: Yes Appearance: Well-Appearing, Well-Nourished, Pain Distress Vital Signs: Initial Vital Signs Temp 98.5 F 01/13/19 09:23 Pulse 83 01/13/19 09:23 Resp 18 01/13/19 09:23 BP 123/74 01/13/19 09:23 Pulse Ox 100 01/13/19 09:23 Vital Signs Reviewed: Yes Eye Exam: Normal ENT Exam: Normal Dental Exam: Normal Neck exam: Normal Respiratory Exam: Normal Cardiovascular Exam: Normal Abdominal Exam: Normal Bowel Sounds: Positive: Present Musculoskeletal Exam: Normal Neurological Exam: Normal Psychological Exam: Normal Skin: Positive: Significant Lesion(s) - area if induration noted around the top of the adams cleft, warm to touch and hard, no pusutles or fluctuance noted. area is approximately the size of a half dollar. Course/Dx - Course Course Of Treatment: hx obtained, exam performed ,meds reviewed, - Differential Diagnoses - Skin Complaint Differential Diagnoses: Abscess - Diagnoses Provider Diagnosis: Pilonidal abscess of adams cleft Discharge ED - Sign-Out/Discharge Documenting (check all that apply): Patient Departure All imaging exams completed and their final reports reviewed: No Studies - Discharge Plan Condition: Stable Disposition: HOME Prescriptions: Cephalexin CAP* [Keflex CAP*] 500 mg PO BID #14 cap metroNIDAZOLE [Flagyl] 500 mg PO BID #14 tablet Patient Education Materials: Pilonidal Cyst (ED) Referrals: Charmaine Velasco [employer] [Primary Care Provider] - Additional Instructions: 1. take the medication as prescribed. 2. Warm baths soaks 2-3 times a day or moist compresses to the area 3. Ibuprofen for pain 4. If not improving in the next 48 hours follow up. - Billing Disposition and Condition Condition: STABLE Disposition: Home
== END 2019-01-13 09:49 | disposition home or self-care (01) ==
LOC: UCEAST 09:05
DX: L05.01 Pilonidal cyst with abscess (principal); F17.210 Nicotine dependence, cigarettes, uncomplicated; Z88.0 Allergy status to penicillin
CPT/HCPCS: 99202; G0463

== ENCOUNTER 2019-03-18 11:02 | Emergency (ER) | payer OTHER ==
--- NOTE | 2019-03-18 11:44 | UC ---
Skin Complaint HPI - HPI Summary HPI Summary: Patient's a 33-year-old female presents for evaluation of pain at the cleft. Patient states of December she came in with a draining wound there was pain bikes improved. Patient states since Monday she's had increasing pain and fullness. Patient's his pain is worse when she sits. Patient's been taking Motrin and Tylenol with little improvement. Last dose was Tylenol at 9 AM. Patient denies fevers or chills. No nausea or vomiting. No abdominal pain. No changes to bowel or bladder. Patient denies any draining at this time. Patient is not a meal, migraines. Patient states she is . Patient's medications is entered in the EMR by triage nurse reviewed this visit. - History of Current Complaint Chief Complaint: UCSkin Time Seen by Provider: 03/18/19 11:32 Stated Complaint: CYST Hx Obtained From: Patient, Medical Records, Other: - Brandy Farmer | Reference #: [id number] Hx Last Menstrual Period: no period Onset/Duration: Gradual Onset Skin Exposure Onset/Duration: Days Ago Onset Severity: Mild Pain Intensity: 10 - Allergy/Home Medications Allergies/Adverse Reactions: Allergies Allergy/AdvReac Type Severity Reaction Status Date / Time Penicillins Allergy Hives Verified 03/18/19 11:16 Home Medications: Home Medications Acetaminophen [Tylenol Extra Strength] 1,000 mg PO DAILY 03/18/19 [History Confirmed 03/18/19] PMH/Surg Hx/FS Hx/Imm Hx Previously Healthy: Yes - Surgical History Surgical History: Yes Surgery Procedure, Year, and Place: TONSILLECTOMY 2009, wisdom teeth extraction - Family History Known Family History: Positive: Cardiac Disease, Diabetes, Non-Contributory - Social History Occupation: Employed Full-time Lives: With Family Alcohol Use: None Substance Use Type: None Smoking Status (MU): Former Smoker Type: Cigarettes - Immunization History Most Recent Influenza Vaccination: declines Most Recent Tetanus Shot: 12/11/14 Most Recent Pneumonia Vaccination: none Review of Systems All Other Systems Reviewed And Are Negative: Yes Constitutional: Positive: Negative Skin: Positive: Other - pain nahun cleft Is Patient Immunocompromised?: No Physical Exam - Summary Physical Exam Summary: Vital Signs Reviewed: Yes A+Ox3, no distress Eyes: Conjunctiva Clear ENT: Hearing grossly normal neck: supple Respiratory: Positive: No respiratory distress, No accessory muscle use CTA throughout, no w/r Cardiovascular: skin color reflect adequate perfusion RRR nl s1 s2 no m/r abd: soft + BS nt/nd Musculoskeletal Exam: GALE x 4 without difficulty Neurological: Positive: Alert, ambulatory without difficulty Psychological: Positive: Normal Response To examiner Skin: Positive: Pt with discomfort at nahun cleft. no erythema, no drainage, +TTP no erythema Triage Information Reviewed: Yes Vital Signs: Initial Vital Signs Temp 99.1 F 03/18/19 11:13 Pulse 116 03/18/19 11:13 Resp 19 03/18/19 11:13 BP 123/76 03/18/19 11:13 Pulse Ox 100 03/18/19 11:13 Diagnostics - Radiology No standard instances Radiology Interpretation Completed By: Radiologist - Patient Name: JACK ROBLES Medical Record#: [id number] Ordering Physician: Brandy Farmer MD Acct.#: [id number] : 1985 Age: 33 Sex: F Location: [facility] Exam Date: 03/18/19 1158 ADM Status: [facility] Order Information: US ABDOMEN LIMITED Accession Number: [id number] CPT: 20135 Indication: Pilonidal abscess. Real-time sonography of the soft tissue was performed. In the area of pain there is a hypoechoic collection which is bilobed in nature. The midline hypoechoic area measures 1.9 x 1.6 x 2.0 cm. Lobulated second component towards the left measures 1.9 x 1.3 x 1.7 cm. IMPRESSION: Lobulated complex collection midline and towards the left with 2 components measuring 1.9 x 1.6 x 2.0 cm and 1.9 x 1.3 x 1.7 cm. These are consistent with abscess. <Electronically signed by Lexii Madera MD in OV> 03/18/19 1238 Dictated By: Lexii Madera MD Dictated Date/Time: 03/18/19 1235 Transcribed Date/Time: 03/18/19 1235 Copy to: CC:Brandy Farmer MD; Charmaine Velasco NP Imaging - [facility] Imaging - [facility] Imaging - [facility] [address] [facility] [address] [place] [id number] [place] [address] ph ([phone]) ph ([phone]) ph ([phone]) This report is only to be considered final once signed by the Provider(s) as displayed in the "< Electronically Signed by >" field (s). Absence of a signature indicates the report is in a draft status and still needs to be finalized. In the event this document was created by someone other than the signing Provider, the individual initiating the document will be listed in the "Entered by:" or "Dictated by:" husrt. 1 of 1 Course/Dx - Course Course Of Treatment: Patient presents to urgent care for evaluation of pain and discomfort progressive for 2 days at the cleft. Patient states she had a wound here approximately 2 months ago that was draining. Patient states it improved and else back. Patient's been taking Motrin and Tylenol for movement. No draining at this time. On exam vital signs are stable. Patient discomfort. Patient has discomfort to mild fullness on the adams cleft both left and right side. No drainage. No erythema. Discussed with patient will give her some ibuprofen. We'll check an ultrasound to see if there is a pocket to drain. If there is little 89-year-old lady advised warm soaks. Either way anticipate referring patient to general surgery for further evaluation and treatment. - Diagnoses Provider Diagnosis: Pilonidal cyst with abscess Discharge ED - Sign-Out/Discharge Documenting (check all that apply): Patient Departure All imaging exams completed and their final reports reviewed: Yes - Discharge Plan Condition: Stable Disposition: HOME Prescriptions: Clindamycin HCl 300 mg PO TID #21 capsule HYDROcodone/ACETAMIN 5-325 MG* [[place] 5-325 TAB*] 1 - 2 tab PO Q6H PRN #20 tab MDD 8 PRN Reason: severe pain Patient Education Materials: Pilonidal Cyst (ED) Forms: *Work Release Referrals: [facility] [Provider Group] (Tomorrow, 03/19/[address] Mann at 1pm ) Charmaine Velasco, SANDRA [Primary Care Provider] - Additional Instructions: - Take antibiotics as prescribed until gone - Okay to change bandage if you drain through - if it remains dry, okay to leave in place until you are evaluated by the surgery office tomorrow - - Okay to alternate ibuprofen (Advil, Motrin) 600mg and Tylenol product ( Tylenol or [place]) every 3hours as needed for pain. Take with food. Do NOT take for more than 4-[address], operate machinery or drink alcohol while taking [place]. This medication may cause constipation - use a stool softner as needed - You have an appointment tomorrow at 11:30am with Dr. Mann - general surgery - it is important to keep this appointment If you develop increased pain, fever, vomiting or any other concerns it is recommended you go to the emergency department for further evaluation and treatment - Billing Disposition and Condition Condition: STABLE Disposition: Home
[2019-03-18] MEDS ORDERED: Ibuprofen TAB* 600 MG PO ONE (11:57)
[2019-03-18] MEDS ORDERED: Lidocaine 1% w EPI 1:100,000* MDV 20 ML VIAL INJ ONE (12:26)
[2019-03-18] MEDS ORDERED: Lidocaine 1% w EPI 1:200,000* SDV 30 ML VIAL INJ ONE (12:39)
[2019-03-18 13:47] VITALS: BP 138/67
== END 2019-03-18 13:47 | disposition home or self-care (01) ==
LOC: UCEAST 11:02
DX: L05.01 Pilonidal cyst with abscess (principal); Z88.0 Allergy status to penicillin; Z87.891 Personal history of nicotine dependence
CPT/HCPCS: 10080; 76705; 87070; 87077; 87205; 99212; A9270-GY; G0463; J2001

== ENCOUNTER 2019-04-23 20:38 | Emergency (ER) | payer OTHER ==
--- OUTSIDE RECORDS SUMMARY | 2019-04-23 20:44 | XMS REPORT | Continuity of Care Document ---
:1985 External Reference #:[id number] Author Name Ashley Gutierrez MD (transmitted by agent of provider Bear Khoury) Address [address], [place] [address] Care Team Providers Name Role Phone Charmaine Velasco FNP - Family Care Team Information Panel Assembler [phone] Problems Active Problems Provider Date Genital herpes simplex Fabián Grant M.D. Onset: 03/02/2010 Pure hypercholesterolemia Fabián Grant M.D. Onset: 03/02/2010 Social History Type Date Description Comments Sex Unknown Tobacco Use Start: Unknown Never Smoked Cigarettes ETOH Use Denies alcohol use Recreational Drug Use Denies Drug Use Tobacco Use Start: Unknown End: Patient is a former smoker Unknown Smoking Status Reviewed: 03/19/19 Patient is a former smoker Exercise Type/Frequency Does not exercise Allergies, Adverse Reactions, Alerts Active Allergies Reaction Severity Comments Date Penicillins hives 04/08/2009 Medications Active Medications SIG Qnty Indications Ordering Provider Date Tylenol Extra Strength 1-2 tabs by mouth Unknown every 6 hours as 500mg Tablets needed Clindamycin HCL take two tabs one Unknown 300mg hour prior to Capsules dental work [place] one tab by mouth Unknown 5-325mg Tablets every 4-6 hours as needed pain Immunizations Description No Information Available Vital Signs Date Vital Result Comment 03/19/2019 11:48am Height 64.5 inches 5'4.50" Weight 193.00 lb Heart Rate 72 /min BP Systolic 120 mmHg BP Diastolic 68 mmHg Respiratory Rate 18 /min Body Temperature 98.6 F BMI (Body Mass Index) 32.6 kg/m2 03/02/2010 11:44am Weight 118.00 lb Heart Rate 79 /min BP Systolic Sitting 116 mmHg BP Diastolic Sitting 78 mmHg O2 % BldC Oximetry 99 % Results Description No Information Available Procedures Description No Information Available Medical Devices Description No Information Available Encounters Description No Information Available Assessments Date Code Description Provider 03/19/2019 L05.01 Pilonidal cyst with abscess Ashley Gutierrez MD Plan of Treatment Future Appointment(s):03/22/2019 10:00 am - José Malik MD, FACS at [facility]03/19/2019 - Ashley Gutierrez MDL05.01 Pilonidal cyst with abscessFollow up:Please return this Monday for a wound check. He may need to have further incision and drainage of this abscess. Feel free to return earlier as needed. Functional Status Description No Information Available Mental Status Description No Information Available Referrals Description No Information Available
--- OUTSIDE RECORDS SUMMARY | 2019-04-23 20:44 | XMS REPORT | Continuity of Care Document ---
:1985 External Reference #:[id number] Author Name José Malik MD, FACS (transmitted by agent of provider Bear Khoury) Address [address] [place] [address] Care Team Providers Name Role Phone Charmaine Velasco FNP - Family Care Team Information Microcomputer Support Specialist [phone] Problems Active Problems Provider Date Genital herpes simplex Fabián Grant M.D. Onset: 03/02/2010 Pure hypercholesterolemia Fabián Grant M.D. Onset: 03/02/2010 Social History Type Date Description Comments Sex Unknown Tobacco Use Start: Unknown Never Smoked Cigarettes ETOH Use Denies alcohol use Recreational Drug Use Denies Drug Use Tobacco Use Start: Unknown End: Patient is a former smoker Unknown Smoking Status Reviewed: 03/22/19 Patient is a former smoker Exercise Type/Frequency Does not exercise Allergies, Adverse Reactions, Alerts Active Allergies Reaction Severity Comments Date Penicillins hives 04/08/2009 Medications Active Medications SIG Qnty Indications Ordering Provider Date Tylenol Extra Strength 1-2 tabs by mouth Unknown every 6 hours as 500mg Tablets needed Clindamycin HCL take two tabs one Unknown 300mg hour prior to Capsules dental work [place] one tab by mouth Unknown 5-325mg Tablets every 4-6 hours as needed pain Immunizations Description No Information Available Vital Signs Date Vital Result Comment 03/22/2019 10:49am Heart Rate 78 /min Respiratory Rate 12 /min Body Temperature 98.1 F 03/19/2019 11:48am Height 64.5 inches 5'4.50" Weight 193.00 lb Heart Rate 72 /min BP Systolic 120 mmHg BP Diastolic 68 mmHg Respiratory Rate 18 /min Body Temperature 98.6 F BMI (Body Mass Index) 32.6 kg/m2 Results Description No Information Available Procedures Description No Information Available Medical Devices Description No Information Available Encounters Description No Information Available Assessments Date Code Description Provider 03/22/2019 L05.01 Pilonidal cyst with abscess José Malik MD, FACS 03/19/2019 L05.01 Pilonidal cyst with abscess Ashley Gutierrez MD Plan of Treatment 03/22/2019 - José Malik MD, [id number] Pilonidal cyst with abscessFollow up: As needed Functional Status Description No Information Available Mental Status Description No Information Available Referrals Description No Information Available
[2019-04-23 21:12] VITALS: BP 107/51
--- NOTE | 2019-04-23 21:41 | UC ---
Respiratory Complaint HPI - History of Current Complaint Chief Complaint: UCGeneralIllness Stated Complaint: COUGH Time Seen by Provider: 04/23/19 21:39 Hx Obtained From: Patient Hx Last Menstrual Period: implant Pain Intensity: 0 - Allergies/Home Medications Allergies/Adverse Reactions: Allergies Allergy/AdvReac Type Severity Reaction Status Date / Time Penicillins Allergy Hives Verified 04/23/19 21:07 Home Medications: Home Medications Albuterol HFA INHALER* [Ventolin HFA Inhaler*] 1 - 2 puff INH Q4H PRN #1 mdi [Rx Confirmed 04/23/19] Etonogestrel [Nexplanon] 68 mg SUBDERMAL ONCE 11/26/17 [History Confirmed ] Azithromycin TAB* [Zithromax TAB (Z-BOYD) 250 mg #6 tabs] 250 mg PO DAILY #4 tab 04/23/19 [Rx] Benzonatate CAP* [Tessalon 100 MG CAP*] 100 mg PO TID PRN #21 cap 04/23/19 [Rx] PMH/Surg Hx/FS Hx/Imm Hx - Surgical History Surgical History: Yes Surgery Procedure, Year, and Place: TONSILLECTOMY 2009, wisdom teeth extraction - Family History Known Family History: Positive: Cardiac Disease, Diabetes, Non-Contributory - Social History Alcohol Use: None Substance Use Type: None Smoking Status (MU): Current Some Day Smoker Type: Cigarettes - Immunization History Most Recent Influenza Vaccination: declines Most Recent Tetanus Shot: 12/11/14 Most Recent Pneumonia Vaccination: none Physical Exam Vital Signs: Initial Vital Signs Temp 99.0 F 04/23/19 21:08 Pulse 89 04/23/19 21:08 Resp 20 04/23/19 21:08 BP 107/51 04/23/19 21:08 Pulse Ox 100 04/23/19 21:08 Respiratory Course/Dx - Differential Dx/Diagnosis Differential Diagnosis/HQI/PQRI: Bronchitis, Lower Resp Infection, Other - uri Provider Diagnosis: Acute bronchitis Discharge ED - Sign-Out/Discharge Documenting (check all that apply): Patient Departure All imaging exams completed and their final reports reviewed: No Studies - Discharge Plan Condition: Stable Disposition: HOME Prescriptions: Azithromycin TAB* [Zithromax TAB (Z-BOYD) 250 mg #6 tabs] 250 mg PO DAILY #4 tab Benzonatate CAP* [Tessalon 100 MG CAP*] 100 mg PO TID PRN #21 cap PRN Reason: Cough Patient Education Materials: Acute Bronchitis (ED) Referrals: Charmaine Velasco NP [Primary Care Provider] - 3 Days Additional Instructions: Your history and exam are consistent with acute bronchitis. Considering the duration of your symptoms we will start you on an antibiotic. You were given a dose of an antibiotic called azithromycin in the clinic tonight. Starting tomorrow take 1 tablet daily for the next 4 days. Use the albuterol inhaler provided to you. Take 2 puffs every 4-6 hours as needed for shortness of breath or wheezing. Be aware that the cough with bronchitis may persist for 2-3 weeks even after treatment. Get plenty of rest. Drink plenty of fluids. Run a cool mist humidifer in your room at night. Take over the counter acetaminophen (Tylenol) or ibuprofen (Advil, Motrin) according to directions as needed for pain or fever. Take Tessalon [place] 1 cap every 8 hours as needed for cough. You were given a dose in the clinic tonight. Follow up with your primary care provider in 3-5 days if symptoms do not improve. Seek immediate medical attention in the emergency room if you have fever greater than 100.5 F despite taking acetaminophen or ibuprofen, have chest pain , difficulty breathing, or have any worsening of symptoms. - Billing Disposition and Condition Condition: STABLE Disposition: Home
[2019-04-23] MEDS ORDERED: Azithromycin TAB* 250 MG PO ONE (21:49)
[2019-04-23] MEDS ORDERED: Albuterol HFA INHALER* 8 gm MDI INH ONE (21:49)
[2019-04-23] MEDS ORDERED: Benzonatate CAP* 100 MG PO ONE (21:49)
== END 2019-04-23 22:09 | disposition home or self-care (01) ==
LOC: UCEAST 20:38
DX: J20.9 Acute bronchitis, unspecified (principal); F17.210 Nicotine dependence, cigarettes, uncomplicated; Z88.0 Allergy status to penicillin
CPT/HCPCS: 99213; A9270-GY; G0463